=== PATIENT | male | born 1985 | race African-American/Black ===

== ENCOUNTER 2021-04-26 17:27 | Emergency (ER) | payer OTHER ==
[~2021-04-26] VITALS: Ht 188 cm; Wt 108.9 kg
[2021-04-26] MEDS ORDERED: IBUPROFEN 600 MG TAB PO ONE (18:30)
[2021-04-26] MEDS ORDERED: MORPHINE SULFATE 4 MG/ML SYR/VIAL IV ONE (18:45)
[2021-04-26 20:28] LABS: Basophils # (auto) 0 10 ^3/uL (0-0.2); Basophils % (auto) 0.3 % (0.0-2.0); Eosinophils # (auto) 0 10 ^3/uL (0-0.8); Eosinophils % (auto) 0.1 % (0.0-7.0); Hematocrit 45.1 % (41.0-53.0); Hemoglobin 14.8 g/dL (13.5-17.5); Lymphocytes # (auto) 1.5 10 ^3/uL (0.4-5.4); Lymphocytes % (auto) 10.8 % (10.0-50.0); Mean Corpuscular Hemoglobin 28.2 pg (28.0-32.0); Mean Corpuscular Hgb Conc. 32.8 g/dL (32.0-36.0); Mean Corpuscular Volume 86.1 fL (80.0-100.0); Monocytes # (auto) 0.7 10 ^3/uL (0-1.3); Monocytes % (auto) 4.8 % (0.0-12.0); Neutrophils # (auto) 11.8 10 ^3/uL (1.6-8.6); Nucleated Red Blood Cells % 0.2 %; Red Blood Cells 5.24 10^6/uL (4.5-5.90)
[2021-04-26 20:32] LABS: Albumin 4.2 g/dL (3.4-5.0); BUN/Creatinine Ratio 12.2; Calcium 9.2 mg/dL (8.5-10.1); Potassium 4.3 mmol/L (3.5-5.1)
[2021-04-26 20:35] LABS: Bilirubin, Total 0.3 mg/dL (0.2-1.0); Total Protein 7.7 g/dL (6.4-8.2)
[2021-04-26 20:55] LABS: INR 1.05 (0.9-1.15); Partial Thromboplastin Time 26.1 sec (23.6-33.0)
[2021-04-26] MEDS ORDERED: ONDANSETRON HCL 4 MG/2 ML VIAL IV ONE (21:45)
[2021-04-27] MEDS ORDERED: HYDROmorphone HCL 2 MG/ML VL IV ONE (01:45)
[2021-04-27 02:50] VITALS: BP 131/78
== END 2021-04-27 03:01 | disposition short-term general hospital (02) ==
LOC: ER 17:27
DX: S82.102A Unspecified fracture of upper end of left tibia, initial encounter for closed fracture (principal); S82.402A Unspecified fracture of shaft of left fibula, initial encounter for closed fracture; Z88.0 Allergy status to penicillin; V86.56XA Driver of dirt bike or motor/cross bike injured in nontraffic accident, initial encounter; Y93.89 Activity, other specified; Y92.89 Other specified places as the place of occurrence of the external cause; Y99.8 Other external cause status
CPT/HCPCS: 36415; 70450; 71045; 72125; 72170; 73130; 73560; 73562; 73700; 80053; 85025; 85610; 85730; 86850; 86900; 86901; 96374; 96375; 99285; J1170; J2270; J2405